=== PATIENT | female | born 1955 | race African-American/Black ===

== ENCOUNTER 2016-08-20 05:46 | Emergency (ER) | payer OTHER ==
[2016-08-20 03:48] LABS: ASCORBIC ACID (UR NOT ORDER) NEG (NEG); BILIRUBIN, URINE NEGATIVE (NEG); ER URINALYSIS TAT 0 Hrs 00 Mins; KETONE, URINE TRACE MG/DL (NEG); LEUKOCYTE ESTERASE(NOT OR TRACE (NEG); NITRITE (URINE) NEG (NEG); WBC (NOT ORDERED) (RFLEX) 2 (0-5)
[2016-08-20 04:09] LABS: BASOPHILS 0.1 %; BASOPHILS ABSOLUTE 0.01 10/3/uL (0.0-0.16); EOSINOPHILS 2.9 %; ER CBC TAT 0 Hrs 02 Mins; HEMATOCRIT 35.4 % (36.0-48.0); HEMOGLOBIN 11.5 g/dL (12.0-16.0); IMMATURE GRANULOCYTES 0.1 %; IMMATURE GRANULOCYTES ABSOLUTE 0.01 10/3/uL (0.0-0.11); LYMPHOCYTES 36.7 %; LYMPHOCYTES ABSOLUTE 2.55 10/3/uL (0.67-4.30); MANUAL DIFF NO %; MEAN CORPUS HGB CONC 32.5 g/dL (32.0-36.0); MEAN CORPUSCULAR HEMOGLOB 26.9 pg (26.0-34.0); MEAN CORPUSCULAR VOLUME 82.9 fL (80-100); MEAN PLATELET VOLUME 10.3 fL (9.2-13.0); MONOCYTES 6.6 %; MONOCYTES ABSOLUTE 0.46 10/3/uL (0.21-1.20); NEUTROPHILS 53.6 %; NEUTROPHILS ABSOLUTE 3.71 10/3/uL (2.02-8.40); PLATELET COUNT 206 10/3/uL (150-400); RED CELL COUNT 4.27 10/6/uL (4.0-5.6); WHITE BLOOD CELLS 6.9 10/3/uL (4.5-10.5)
[2016-08-20 04:14] LABS: AMPHETAMINES (NOT ORD) NEG (NEG); BARBITURATES (NOT ORDERED NEG (NEG); BENZODIAZEPINES (NOT ORD) POS (NEG); CANNABINOIDS (THC) NEG (NEG); COCAINE (NOT ORDERED) NEG (NEG); OPIATES POS (NEG); PHENCYCLIDINE(PCP) NEG (NEG); TRICYCLICS POS (NEG)
[2016-08-20 04:16] LABS: PARTIAL THROMBO TIME 47.9 SEC (22.5-37.2)
[2016-08-20 04:19] LABS: PROTIME (NOT ORD) 22.9 SEC (12.0-14.5)
[2016-08-20 04:32] LABS: CALCIUM, SERUM 9.2 MG/DL (8.5-10.4); CHEST PAIN PROFILE TAT 0 Hrs 25 Mins; CHLORIDE, SERUM 97 MMOL/L (96-112); CO2 (CARBON DIOXIDE) 33 MMOL/L (24-34); CREATININE 1.67 MG/DL (0.55-1.02); GFR AFRICAN AMERICAN 38 ML/MIN (>=60); GFR NON AFRICAN AMERICAN 32 ML/MIN (>=60); POTASSIUM, SERUM 3.9 MMOL/L (3.5-5.3); SODIUM, SERUM 136 MMOL/L (135-148); TROPONIN I <0.02 NG/ML (<0.05)
[2016-08-20 04:33] LABS: ACETAMINOPHEN LEVEL (TYLENOL) < 2.0 MCG/ML (10.0-20.0); ALCOHOL < 3 MG/DL (0); BUN (BLOOD UREA NITROGEN) 23 MG/DL (6-23); GLUCOSE, SERUM 238 MG/DL (60-99); SALICYLATE < 1.7 MG/DL (-)
[2016-08-20 05:32] LABS: ALBUMIN 3.4 G/DL (3.5-5.0); DIRECT BILIRUBIN 0.1 MG/DL (0.0-0.4); INDIRECT BILIRUBIN(NOT ORDER) 0.5 MG/DL (0.1-0.9); SGOT(AST) 25 U/L (5-40); SGPT(ALT) 20 U/L (5-65); TOTAL BILIRUBIN 0.6 MG/DL (0-1.2); TOTAL PROTEIN 7.7 G/DL (6.0-8.5)
[2016-08-20 05:34] LABS: ALKALINE PHOSPHATASE 117 U/L (45-117)
[~2016-08-20 05:46] MED LIST: ANTIBIOTIC PO; APRES25 PO; ASAB PO; AUG875 PO; BACDS PO; BYETTA10 SC; C1 PO; C5; C5 PO; CAT2 PO; CEFT5 PO; COREG25 PO; COUMADIN6 MG PO; COUMADIN7.5 MG PO; COZ50 PO; DSS PO; DURA100 TOP; DURA25 TOP; DURA50 TOP; ENDOCET1 TA3 PO; FLEX PO; FLEXERIL PO; FLEXERIL5 MG PO; GLUCOPHAGE1000 MG PO; GLUCOV2.5 PO; GLUCPH PO; HUMALOG SC; ICY HOT16 % TOP; IMDUR30 PO; IMOD PO; JANTOVEN1 MG; JANTOVEN1 MG PO; JANTOVEN5 MG PO; JANTOVEN7.5 MG PO; K-TABS10 MEQ PO; KDUR20 PO; KLOR-CON 1010 MEQ PO; KLOR-CON M1010 MEQ PO; KLOR-CON M2020 MEQ PO; L20 PO; L40 PO; L80 PO; LANTUS SC; LEVEMIR SC; LIOR10 PO; LISINOPRIL PO; LOP100 PO; LOPID6 PO; MAGOX4 PO; METFORMIN PO; MEVACOR PO; MICRO-K10 MEQ PO; MIRALAXPKT PO; MSCONT60 PO; MSCONTIN PO; NEUR100 PO; NEUR300 PO; NEUR600 PO; NORV5 PO; NOVOLOG SQ; NXL6 PO; OMNICEF300 PO; OTC PAIN PATCH TOP; PERCOCET1 TA4 PO; PHEN50TAB PO; PHENERGAN PO; PLAQ200B PO; PR25 PO; PRILO PO; PRIN10 PO; PRIN20 PO; PRIN5 PO; RESTASIS OPH; RESTORIL30 MG PO; RYTHMOL150 MG PO; SANTYL250 MG/GM TOP; SEROQUEL1C PO; SEROQUEL50 MG PO; SILVASORB TOP; STEROID SHOT IM; TAMBOCOR150 MG PO; TOPAMAX100 PO; ULTRAM50 PO; VISINE0.05 % OP; VITC500 PO; ZANTAC 150 PO; ZANTAC150 MG PO; ZITHROMAX500 MG PO; ZOCOR40 PO; ZOFRAN8 PO; [UNRECOGNIZED DRUG - OTHER] PO
== END 2016-08-20 09:59 | disposition home or self-care (01) ==
LOC: ER 05:46
PROVIDERS: Nurse Practitioner
DX: E83.42 Hypomagnesemia (principal); N28.9 Disorder of kidney and ureter, unspecified; I11.0 Hypertensive heart disease with heart failure; I50.9 Heart failure, unspecified; E11.9 Type 2 diabetes mellitus without complications; I48.91 Unspecified atrial fibrillation; Z90.49 Acquired absence of other specified parts of digestive tract; Z88.8 Allergy status to other drugs, medicaments and biological substances; Z79.4 Long term (current) use of insulin; Z79.01 Long term (current) use of anticoagulants; Z79.899 Other long term (current) drug therapy
CPT/HCPCS: 70450; 71010; 80048; 80076; 80305; 80307; 81001; 82140; 83735; 84484; 85025; 85610; 85730; 93005; 99285; J3475

== ENCOUNTER 2016-08-21 04:58 | Observation (INO) | payer OTHER ==
--- NOTE | ~2016-08-21 | CN ---
Consultation Report [facility] [address] [place]. [address] NAME: MAILE VILLARREAL : 53 STATUS : ADM Alyssa PAT#: [id number] AGE: 61 ADM/REG DATE : 08/21/16 MR#: [id number] REPORT SERV DATE: 08/21/16 DICTATED BY: LESLYE MOSES DATE: 08/21/16 REPORT STATUS : Draft TRANSCRIBED BY: MODL DATE: 08/21/16 NEUROLOGY CONSULTATION DATE OF CONSULTATION: 08/21/2016 REASON FOR CONSULTATION: Acute encephalopathy. HOSPITALIST: Dr. Marcia More. PSYCHIATRIST: Dr. Lopez. HISTORY OF PRESENT ILLNESS: The patient is a 61-year-old female, who has become increasingly paranoid and delirious. This increase in intensity and frequency started approximately on 08/18/2016. She has been calling the police station saying that she has threatened by danger. The neighbors found her wandering out into the neighborhood and at 0100 hours in the morning, she was wandering outside looking for family members and later on the afternoon, she had not slept and was found at 0230 hours in the neighbor's field wandering around searching for her grandchildren. She was brought back home, but then again at 0200 hours in the morning, she was found outside. She was paranoid and confused and was wanting to call the police, stating that she was in danger. Her family describes her as panic, anxious, and agitated. She does complain of arthritic pain and feels short of breath. She also has some left ear pain and drainage. She denies any headache, any chest pain, abdominal pain, back pain, or sore throat. At this time, the patient is in her room. She is agitated. She is arguing with the nursing staff and also with security. She states that, she wants to go home. She does not want anything to do with [facility] and wants to be able to pick her own physicians. She states that, there is nothing wrong with her, and she wants to walk home. She is frantically searching for her cane and trying to put on her coat while headed for the door. She states that, she does not need her daughter, that she can find her way home on her own. The patient does not want to sign any forms and feels that she is mentally stable to take care of herself. She has been highly encouraged to stay here and was told that she is not able to walk home safely on her own or to make medical decisions on her own. She has also been told that her daughter Jolene will be here shortly and she should wait for her arrival. PAST MEDICAL HISTORY: Lupus with arthritis, diabetes mellitus, diabetic neuropathy, COPD, migraine, atrial fibrillation, SVT, restless legs syndrome, fibromyalgia, chronic diastolic heart failure, empty sella syndrome, UTI, pneumonia, sacral decubitus, anemia, diverticulosis, anxiety, and depression with psychotic features, exophthalmos, dysphagia, chronic pain, cellulitis of the groin, obstructive sleep apnea with noncompliance with CPAP, ischemic colitis, intraperitoneal bleed, hypertension, and history of tobacco abuse. PAST SURGICAL HISTORY: Cardiac ablation x2, right axillary incision and drainage, back surgery x2, left rotator cuff repair, total abdominal hysterectomy, cholecystectomy, appendectomy, and right carpal tunnel release. Consultation Report [address] [address] NAME: MAILE VILLARREAL : 53 STATUS : ADM Alyssa PAT#: [id number] AGE: 61 ADM/REG DATE : 08/21/16 MR#: [id number] REPORT SERV DATE: 08/21/16 DICTATED BY: LESLYE MOSES DATE: 08/21/16 REPORT STATUS : Draft TRANSCRIBED BY: DIAN DATE: 08/21/16 HOME MEDICATIONS: Consists of baclofen 10 mg q.i.d., Neurontin 300 mg t.i.d., Plaquenil 200 mg b.i.d., Levemir 15 units subcu q.a.m. and 20 units subcu at bedtime, Humalog insulin sliding scale before meals and at bedtime, Prinivil 20 mg b.i.d., Glucophage 500 mg before meals and at bedtime, Lopressor 100 mg b.i.d., MS Contin 30 mg every 12 hours, Zofran 8 mg p.r.n., Percocet 10/325 mg four times a day, Zantac 150 mg b.i.d., Zocor 40 mg at bedtime, Restoril 30 mg at bedtime, Jantoven 5 mg Sunday, Sunday, and Sunday and 9 mg Sunday and . ALLERGIES: TOLECTIN, MORPHINE, AND ASPIRIN. SOCIAL HISTORY: The patient is . She lives alone. She has one daughter. She is on disability. She is a remote smoker. Does not drink alcohol or use illicits. FAMILY HISTORY: The patient's mother of COPD. Her father from lung cancer. She has one daughter who has lupus. REVIEW OF SYSTEMS: For pertinent positives, please refer to HPI. PHYSICAL EXAMINATION: GENERAL: The patient is a 61-year-old female, who stands 5 feet 6 inches tall and weighs 240 pounds. VITAL SIGNS: She is afebrile. Heart rate 72, respiratory rate 18, O2 saturations on room air of 97%, blood pressure 152/88. NEURO: At this point, the patient refuses any type of physical exam. She is verbal. No dysarthria. No aphasia noted. EXTREMITIES: The patient seems to be moving all extremities x4. No obvious focal deficits noted. LABORATORY DATA: CBC is normal. BMP normal except the glucose is 179. INR is subtherapeutic at 1.3. TSH 0.425. Cortisol level is elevated at 32.6. C-reactive protein 15.9. Complement C3 186, which is abnormal, complement C4 is normal at 36.8. UA negative for UTI. Chest x-ray, negative. A1c is 11.3. Cholesterol values are mildly elevated. CT of the brain, no acute changes. ASSESSMENT/PLAN: 1. Acute encephalopathy with delirium, etiology unknown, multifactorial, this is most likely psychiatric in nature; however, we will rule out organic causes. The patient will undergo an MRI of the brain without gadolinium and an MRA of the head and neck with gadolinium. The patient has atrial fibrillation and came in with a subtherapeutic INR of 1.3, also various lab work will be checked. 2. Schizoaffective disorder, bipolar type with psychotic features. 3. Lupus. 4. Empty sella syndrome. Consultation Report [place] [address] [place]. [address] NAME: MAILE VILLARREAL : 53 STATUS : ADM Alyssa PAT#: [id number] AGE: 61 ADM/REG DATE : 08/21/16 MR#: [id number] REPORT SERV DATE: 08/21/16 DICTATED BY: LESLYE MOSES DATE: 08/21/16 REPORT STATUS : Draft TRANSCRIBED BY: DIAN DATE: 08/21/16 5. Atrial fibrillation with a subtherapeutic INR. Thank you again for including us in consultation. We will follow with you. ADDY/DIAN Leslye Moses, [facility] / [id number] CC: MD Dillan Rodriguez M.D. Denis Kennedy, M.D. Rohini R Alay, M.D.
--- NOTE | ~2016-08-21 | DS ---
Discharge Summary [facility] [address] [place]. [address] NAME: MAILE VILLARREAL : 53 STATUS : DIS Alyssa PAT#: [id number] AGE: 61 ADM/REG DATE : 08/21/16 MR#: [id number] REPORT SERV DATE: 08/24/16 DICTATED BY: DATE: REPORT STATUS : Draft TRANSCRIBED BY: MODL DATE: 08/23/16 ADMISSION DATE: 08/21/2016 DISCHARGE DATE: 08/23/2016 The patient was admitted to the [facility]. Attending doctor is Dr. Francisco Tomlinson. CONSULTANTS: Raj Lopez M.D., of Psychiatry; and Darlene Reeder, nurse-practitioner, of Neurology. DISCHARGE DIAGNOSES: 1. Acute psychosis due to schizoaffective disorder, bipolar type, with delusions and sarah at admission. Improved with Seroquel and Ativan. 2. Generalized anxiety disorder. 3. History of empty sella syndrome. 4. History of lupus. 5. Insulin-dependent diabetes mellitus type 2-uncontrolled with hemoglobin A1c of 11. Easily controlled here with minimal amounts of insulin, suggesting dietary noncompliance as an outpatient. 6. Chronic atrial fibrillation-anticoagulated on Xarelto, rate controlled. 7. Hypertension-controlled. Did not require as much medication as she previously took outpatient. 8. Acute kidney injury present at admission-resolved. 9. Hypokalemia-initiated on replacement. 10.Hypomagnesemia-initiated on replacement. IMAGIN. Portable chest x-ray, 08/20/2016, shows pulmonary venous congestion. 2. Brain CT without contrast, 08/20/2016, no acute intracranial abnormality on noncontrast CT brain scan. 3. Portable chest x-ray, 08/21/2016, shallow inspiration, but no acute cardiopulmonary abnormality. 4. MRI of the brain without contrast, 08/21/2016, shows chronic mild bilateral anterior ethmoid sinus disease. Very minor deep white matter chronic microvascular ischemic change. No acute CVA or other acute intracranial abnormality. 5. MRA of the head and neck on 08/21/2016 shows unremarkable MRA of the carotids. No significant atherosclerotic plaque or stenosis. Dominant right vertebral artery with otherwise normal contour and normal antegrade flow in bilateral vertebral arteries. PERTINENT LABS: Creatinine at admission was 1.67, 1.02 at discharge. Magnesium ranged from 1.5 to 1.6, potassium ranged from 3.12 to 3.6. NICANOR was positive at 1:320 in a speckled pattern. White blood cell count was normal, hemoglobin minimally depressed at 11.6, platelet value is normal. INR ranging from 1.2 to 1.6 this admission. Albumin 2.7. TSH normal. Ammonia negative. B12 of 1987. CRP 13.5. Sedimentation rate 63. Hemoglobin A1c 11. C3 complement 186. C4 complement 36.8. Urinalysis negative for infection. Urine drug screen positive for benzodiazepines, opiates, and tricyclics. Discharge Summary [place] [address] [place]. [address] NAME: MAILE VILLARREAL : 53 STATUS : DIS Alyssa PAT#: [id number] AGE: 61 ADM/REG DATE : 08/21/16 MR#: [id number] REPORT SERV DATE: 08/24/16 DICTATED BY: DATE: REPORT STATUS : Draft TRANSCRIBED BY: MODL DATE: 08/23/16 BRIEF HISTORY: For full details, please see the previously dictated history of present illness by Dr. Casper Glover. Briefly, this is a 61-year-old female with known history of schizoaffective disorder, bipolar type, who was experiencing increasing paranoia, confusion, and wandering hours in the days before admission. She was not sleeping and endorsed racing thoughts, with feelings of panic, anxiety, and agitation. She denied any hallucinations. She was admitted to the Hospitalist Service for further evaluation of acute encephalopathy. She also demonstrated acute kidney injury at admission and uncontrolled diabetes. HOSPITAL COURSE: The patient was admitted to a med/surg telemetry unit. Consultations were obtained from Neurology and Psychiatry, who felt that the most likely etiology of her symptoms was exacerbation of her underlying schizoaffective disorder. She did undergo several laboratories to rule out reversible medical causes for her increased confusion and paranoia. Results were normal. She also underwent an MRI and MRA of the brain, which was normal with the exception of mild ethmoid sinusitis. She remained paranoid and agitated for the first 24 hours of admission, requiring p.r.n. Geodon and Ativan. Psychiatry initiated her on Seroquel well, with great improvement in her symptoms by 08/22/2016, at which point, she was feeling "much better," and with much improved insight and judgment. She was calmer and cooperative, with no recurrence of her symptoms during the admission. She is felt appropriate for discharge on 08/23/2016, to continue taking Seroquel well on a scheduled basis and Ativan on a p.r.n. basis, and to follow up at [facility] where she has been seen previously. She has not felt to require inpatient hospitalization at present. Her other medical issues were stable this admission. She does not demonstrate active lupus by complement levels, although she does have a persistently positive NICANOR and has in the past as well. Her diabetes is uncontrolled with a hemoglobin A1c of 11 as an outpatient, but her blood sugars are easily controlled in the hospital with less insulin than her home requirements, indicating dietary noncompliance. Regarding chronic atrial fibrillation, she was rate controlled. Apparently, she is anticoagulated on Xarelto as an outpatient, but this medication change had not been communicated at admission, and she was treated with Jantoven here, with a subtherapeutic INR. She will be resumed on Xarelto for discharge. Regarding hypertension and acute kidney injury at admission, the patient and daughter felt that she has been overmedicated recently, and again, because of errors in her home medication list, she was not actually continued on many of her home antihypertensives during the admission, with good blood pressure control in the systolic 130 to 150 range. Thus her medications have been adjusted slightly for discharge as well, to follow up with her primary care provider and the [facility] as scheduled. She did have hypokalemia and hypomagnesemia on multiple occasions and was started on scheduled replacement for this. DISCHARGE DATA: The patient is discharged to home in the care of her supportive daughter with no specific activity restrictions. She should adhere to an 1800 K calorie, ADA, cardiac diet for her comorbidities. She will follow up at [facility] and Case Management is making an appointment. She will need to follow up with primary care provider, Dr. Baig; and wind farm electrical systems designer, Dr. Jones; as previously scheduled. Discharge Summary [place] [address] [place]. [address] NAME: MAILE VILLARREAL : 53 STATUS : DIS Alyssa PAT#: [id number] AGE: 61 ADM/REG DATE : 08/21/16 MR#: [id number] REPORT SERV DATE: 08/24/16 DICTATED BY: DATE: REPORT STATUS : Draft TRANSCRIBED BY: DIAN DATE: 08/23/16 DISCHARGE MEDICATIONS: Include, 1. Neurontin 300 mg p.o. three times a day. 2. Xarelto 20 mg p.o. daily with supper. 3. Levemir 15 units subcu twice a day. 4. NovoLog subcu q.a.c. and at bedtime-sliding scale. 5. Number lisinopril 20 mg p.o. b.i.d. 6. Lopressor 100 mg p.o. b.i.d. 7. Zocor 40 mg p.o. at bedtime. 8. Magnesium oxide 400 mg p.o. daily. 9. Potassium chloride 20 mEq p.o. daily. 10.Seroquel 100 mg p.o. at bedtime. 11.Restoril 15 mg p.o. at bedtime. 12.Demadex 20 mg p.o. daily. 13.Baclofen 20 mg p.o. three times a day. 14.Metformin 500 mg p.o. q.a.c. breakfast and supper. 15.MS Contin 30 mg p.o. every 12 hours. 16.Percocet 10/325 mg one tablet p.o. three times a day as needed. 17.B12 1000 mcg p.o. daily. 18.Vitamin D 1000 units p.o. daily. 19.Ativan half to 1 mg q.8 hours p.r.n. anxiety or agitation. At discharge, her torsemide has been decreased from 20 mg p.o. twice a day to 20 mg p.o. daily in order to avoid recurrent acute kidney injury or hypotension. Her Catapres has also been discontinued. Her Elavil was discontinued here, and she is prescribed temazepam to help with sleep instead as she showed good response to this medication during this hospitalization. 40 minutes was spent in completion of the discharge. PANDA/DIAN Francisco Tomlinson M.D. / [id number] CC: Francisco Tomlinson M.D. Dillan Mac M.D. Isael Jones M.D. [facility]
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
--- NOTE | ~2016-08-21 | CN ---
Consultation Report [facility] [address] [place]. [address] NAME: MAILE VILLARREAL : 53 STATUS : ADM Alyssa PAT#: [id number] AGE: 61 ADM/REG DATE : 08/21/16 MR#: [id number] REPORT SERV DATE: 08/21/16 DICTATED BY: RAJ CUI DATE: 08/21/16 REPORT STATUS : Draft TRANSCRIBED BY: DIAN DATE: 08/21/16 PSYCHIATRIC CONSULTATION DATE OF CONSULTATION: 08/21/2016 I reviewed the patient's current and old medical records. I discussed her status with her nurse. HISTORY OF PRESENT ILLNESS: Over recent days, the patient had called the police on a number of occasions, reporting that she was being threatened by imaginary assailants. On 08/20/2016, she was found wandering outside at 1 o'clock in the morning. Subsequently, she was found in a neighboring field searching for imaginary grandchildren. The family reported that she has been agitated, going without sleep for the past four to five days. PAST PSYCHIATRIC HISTORY: I previously saw her in consultation during two previous admissions in 2011 and 2014. For a number of years, perhaps more than 20, she has been delusional about family members and other issues. She has frequently complained about imaginary intruders in her yard and in her house. For some years, she attended [facility], which is a mental health clinic. She quit attending there in 2009. During both of my previous consultations, I prescribed Seroquel 50 to 100 mg q.h.s., and I recommended her return to [facility] for followup psychiatric care. Apparently, she did not follow through with that recommendation. FAMILY HISTORY: She has siblings with alcohol and mood issues. SOCIAL HISTORY: She lives alone in [place], [place]. She has a daughter, who tries to be supportive. MENTAL STATUS: She remembered me from my two previous consultations with her. She was oriented to "the 21 of August"-"2016"-"[facility]." Her attitude was very guarded and suspicious. Her mood was anxious. She accused me of laughing and sticking out my tongue at her during a previous consultation. Her affect was labile with brief episodes of anger. Her thinking was mostly logical, but with a pervasive paranoid disposition. She said she had not slept for four or five nights because she was looking for her mother. DIAGNOSIS: Schizoaffective disorder, bipolar type, with delusions and sarah. RECOMMENDATIONS: She should be referred to an inpatient psychiatric facility as soon as she is medically cleared. I will start her on Seroquel and follow during this admission. FRANK/DIAN Raj Consultation Report [facility] [address] [id number] NAME: MAILE VILLARREAL : 53 STATUS : ADM Alyssa PAT#: [id number] AGE: 61 ADM/REG DATE : 08/21/16 MR#: [id number] REPORT SERV DATE: 08/21/16 DICTATED BY: RAJ CUI DATE: 08/21/16 REPORT STATUS : Draft TRANSCRIBED BY: DIAN DATE: 08/21/16 Otf Cui / [id number] CC: MD Dillan Rodriguez M.D.
[2016-08-21 05:23] LABS: BASOPHILS 0.1 %; BASOPHILS ABSOLUTE 0.01 10/3/uL (0.0-0.16); EOSINOPHILS 0.3 %; EOSINOPHILS ABSOLUTE 0.02 10/3/uL (0.0-0.53); HEMATOCRIT 38.7 % (36.0-48.0); HEMOGLOBIN 13.2 g/dL (12.0-16.0); IMMATURE GRANULOCYTES 0.3 %; IMMATURE GRANULOCYTES ABSOLUTE 0.02 10/3/uL (0.0-0.11); LYMPHOCYTES 19.4 %; LYMPHOCYTES ABSOLUTE 1.38 10/3/uL (0.67-4.30); MEAN CORPUS HGB CONC 34.1 g/dL (32.0-36.0); MEAN CORPUSCULAR HEMOGLOB 27.4 pg (26.0-34.0); MEAN CORPUSCULAR VOLUME 80.5 fL (80-100); MEAN PLATELET VOLUME 10.3 fL (9.2-13.0); MONOCYTES 5.8 %; MONOCYTES ABSOLUTE 0.41 10/3/uL (0.21-1.20); NEUTROPHILS 74.1 %; NEUTROPHILS ABSOLUTE 5.26 10/3/uL (2.02-8.40); PLATELET COUNT 233 10/3/uL (150-400); RBC DISTRIBUTION WIDTH 13.7 % (12.0-16.0); RED CELL COUNT 4.81 10/6/uL (4.0-5.6); WHITE BLOOD CELLS 7.1 10/3/uL (4.5-10.5)
[2016-08-21 05:26] LABS: MANUAL DIFF NO %
[2016-08-21 05:33] LABS: ASCORBIC ACID (UR NOT ORDER) NEG (NEG); BILIRUBIN, URINE NEGATIVE (NEG); ER URINALYSIS TAT 0 Hrs 11 Mins; KETONE, URINE 20 MG/DL (NEG); LEUKOCYTE ESTERASE(NOT OR NEG (NEG); NITRITE (URINE) NEG (NEG); WBC (NOT ORDERED) (RFLEX) 2 (0-5)
[2016-08-21 05:38] LABS: INTERNATIONAL NORMAL RATI 1.3 UNITS (-)
[2016-08-21 05:39] LABS: PARTIAL THROMBO TIME 37.1 SEC (22.5-37.2); PROTIME (NOT ORD) 16.2 SEC (12.0-14.5)
[2016-08-21 05:40] LABS: CHEST PAIN PROFILE TAT 0 Hrs 23 Mins; CHLORIDE, SERUM 98 MMOL/L (96-112); CO2 (CARBON DIOXIDE) 29 MMOL/L (24-34); SODIUM, SERUM 141 MMOL/L (135-148); TROPONIN I <0.02 NG/ML (<0.05)
[2016-08-21 05:41] LABS: BUN (BLOOD UREA NITROGEN) 15 MG/DL (6-23); CREATININE 1.07 MG/DL (0.55-1.02); GFR AFRICAN AMERICAN 64 ML/MIN (>=60); GFR NON AFRICAN AMERICAN 56 ML/MIN (>=60); GLUCOSE, SERUM 290 MG/DL (60-99); POTASSIUM, SERUM 3.1 MMOL/L (3.5-5.3)
[2016-08-21 13:37] LABS: ALBUMIN 3.4 G/DL (3.5-5.0); ALKALINE PHOSPHATASE 124 U/L (45-117); BUN (BLOOD UREA NITROGEN) 12 MG/DL (6-23); CHLORIDE, SERUM 105 MMOL/L (96-112); CO2 (CARBON DIOXIDE) 29 MMOL/L (24-34); COMPLEMENT C3 186 MG/DL (75-161); COMPLEMENT C4 36.8 MG/DL (16-47); CREATININE 0.94 MG/DL (0.55-1.02); GFR AFRICAN AMERICAN 75 ML/MIN (>=60); GFR NON AFRICAN AMERICAN 65 ML/MIN (>=60); POTASSIUM, SERUM 3.6 MMOL/L (3.5-5.3); SGOT(AST) 22 U/L (5-40); SGPT(ALT) 22 U/L (5-65); SODIUM, SERUM 143 MMOL/L (135-148); TOTAL BILIRUBIN 0.4 MG/DL (0-1.2); TOTAL PROTEIN 7.3 G/DL (6.0-8.5); ULTRASENSITIVE TSH 0.425 MCIU/ML (0.358-3.740)
[2016-08-21 13:38] LABS: A/G RATIO 0.9 (0.7-1.9); C-REACTIVE PROTEIN 15.9 MG/L (<8.0); CALCIUM, SERUM 9.4 MG/DL (8.5-10.4); GLOBULIN 3.9 G/DL (2.5-4.1); GLUCOSE, SERUM 179 MG/DL (60-99)
[2016-08-21 16:23] LABS: CALCIUM IONIZED 4.65 MG/DL (3.80-4.80)
[2016-08-21 16:25] LABS: BASOPHILS 0.2 %; BASOPHILS ABSOLUTE 0.01 10/3/uL (0.0-0.16); EOSINOPHILS 0.8 %; EOSINOPHILS ABSOLUTE 0.05 10/3/uL (0.0-0.53); HEMATOCRIT 37.1 % (36.0-48.0); HEMOGLOBIN 12.3 g/dL (12.0-16.0); IMMATURE GRANULOCYTES 0.2 %; IMMATURE GRANULOCYTES ABSOLUTE 0.01 10/3/uL (0.0-0.11); LYMPHOCYTES 22.5 %; LYMPHOCYTES ABSOLUTE 1.33 10/3/uL (0.67-4.30); MANUAL DIFF NO %; MEAN CORPUS HGB CONC 33.2 g/dL (32.0-36.0); MEAN CORPUSCULAR VOLUME 81.5 fL (80-100); MONOCYTES 5.2 %; MONOCYTES ABSOLUTE 0.31 10/3/uL (0.21-1.20); NEUTROPHILS 71.1 %; PLATELET COUNT 212 10/3/uL (150-400); RBC DISTRIBUTION WIDTH 13.9 % (12.0-16.0); RED CELL COUNT 4.55 10/6/uL (4.0-5.6); WHITE BLOOD CELLS 5.9 10/3/uL (4.5-10.5)
[2016-08-21 16:40] LABS: INTERNATIONAL NORMAL RATI 1.2 UNITS (-); PARTIAL THROMBO TIME 34.8 SEC (22.5-37.2); PROTIME (NOT ORD) 15.5 SEC (12.0-14.5)
[2016-08-21 16:52] LABS: INTACT PTH (ICMA) 56.6 PG/ML (10.0-65.0)
[2016-08-21 17:04] LABS: ALBUMIN 3.1 G/DL (3.5-5.0); ALKALINE PHOSPHATASE 106 U/L (45-117); C-REACTIVE PROTEIN 13.5 MG/L (<8.0); DIRECT BILIRUBIN < 0.1 MG/DL (0.0-0.4); FOLATE 19.3 NG/ML (>5.2); INDIRECT BILIRUBIN(NOT ORDER) 0.4 MG/DL (0.1-0.9); PHOSPHORUS, SERUM 2.5 MG/DL (2.5-4.5); SGOT(AST) 21 U/L (5-40); SGPT(ALT) 19 U/L (5-65); TOTAL BILIRUBIN 0.5 MG/DL (0-1.2); TOTAL PROTEIN 7.3 G/DL (6.0-8.5)
[2016-08-21 17:58] LABS: SED RATE 63 MM/HR (0-20)
[2016-08-22 05:15] LABS: BASOPHILS 0.1 %; BASOPHILS ABSOLUTE 0.01 10/3/uL (0.0-0.16); EOSINOPHILS 3.9 %; EOSINOPHILS ABSOLUTE 0.28 10/3/uL (0.0-0.53); HEMOGLOBIN 11.6 g/dL (12.0-16.0); IMMATURE GRANULOCYTES 0.1 %; IMMATURE GRANULOCYTES ABSOLUTE 0.01 10/3/uL (0.0-0.11); LYMPHOCYTES 39.3 %; LYMPHOCYTES ABSOLUTE 2.86 10/3/uL (0.67-4.30); MEAN CORPUS HGB CONC 32.2 g/dL (32.0-36.0); MEAN CORPUSCULAR HEMOGLOB 26.6 pg (26.0-34.0); MEAN CORPUSCULAR VOLUME 82.6 fL (80-100); MEAN PLATELET VOLUME 10.5 fL (9.2-13.0); MONOCYTES 7.6 %; MONOCYTES ABSOLUTE 0.55 10/3/uL (0.21-1.20); NEUTROPHILS ABSOLUTE 3.56 10/3/uL (2.02-8.40); PLATELET COUNT 226 10/3/uL (150-400); RBC DISTRIBUTION WIDTH 14.1 % (12.0-16.0); RED CELL COUNT 4.36 10/6/uL (4.0-5.6); WHITE BLOOD CELLS 7.3 10/3/uL (4.5-10.5)
[2016-08-22 05:16] LABS: MANUAL DIFF NO %
[2016-08-22 05:26] LABS: INTERNATIONAL NORMAL RATI 1.2 UNITS (-); PROTIME (NOT ORD) 15.4 SEC (12.0-14.5)
[2016-08-22 05:32] LABS: A/G RATIO 0.7 (0.7-1.9); ALBUMIN 2.7 G/DL (3.5-5.0); BUN (BLOOD UREA NITROGEN) 9 MG/DL (6-23); CALCIUM, SERUM 9.2 MG/DL (8.5-10.4); CHLORIDE, SERUM 106 MMOL/L (96-112); CO2 (CARBON DIOXIDE) 32 MMOL/L (24-34); CREATININE 0.86 MG/DL (0.55-1.02); GFR AFRICAN AMERICAN 84 ML/MIN (>=60); GFR NON AFRICAN AMERICAN 72 ML/MIN (>=60); GLOBULIN 3.8 G/DL (2.5-4.1); POTASSIUM, SERUM 3.1 MMOL/L (3.5-5.3); SGOT(AST) 15 U/L (5-40); SGPT(ALT) 17 U/L (5-65); SODIUM, SERUM 145 MMOL/L (135-148); TOTAL BILIRUBIN 0.5 MG/DL (0-1.2); TOTAL PROTEIN 6.5 G/DL (6.0-8.5)
[2016-08-22 05:33] LABS: ALKALINE PHOSPHATASE 84 U/L (45-117); GLUCOSE, SERUM 64 MG/DL (60-99)
[2016-08-23 06:22] LABS: INTERNATIONAL NORMAL RATI 1.2 UNITS (-); PROTIME (NOT ORD) 15.4 SEC (12.0-14.5)
[2016-08-23 06:29] LABS: ALBUMIN 2.7 G/DL (3.5-5.0); BUN (BLOOD UREA NITROGEN) 12 MG/DL (6-23); CALCIUM, SERUM 9.4 MG/DL (8.5-10.4); CHLORIDE, SERUM 108 MMOL/L (96-112); CO2 (CARBON DIOXIDE) 30 MMOL/L (24-34); CREATININE 1.02 MG/DL (0.55-1.02); GFR AFRICAN AMERICAN 68 ML/MIN (>=60); GFR NON AFRICAN AMERICAN 59 ML/MIN (>=60); PHOSPHORUS, SERUM 3.2 MG/DL (2.5-4.5); POTASSIUM, SERUM 3.6 MMOL/L (3.5-5.3); SODIUM, SERUM 146 MMOL/L (135-148)
[2016-08-23 06:30] LABS: GLUCOSE, SERUM 98 MG/DL (60-99)
[2016-08-23 10:00] LABS: ANA PATTERN SPECKLED
[2016-08-23] MEDS ORDERED: DEMA20 PO (10:24)
[2016-08-23] MEDS ORDERED: CAT1 PO (10:24)
[2016-08-23] MEDS ORDERED: NEUR300 PO (10:24)
[2016-08-23] MEDS ORDERED: AMIT25 PO (10:25)
[2016-08-23] MEDS ORDERED: PRIN20 PO (10:25)
[2016-08-23] MEDS ORDERED: BACLOFEN20 MG PO (10:25)
[2016-08-23] MEDS ORDERED: LOP100 PO (10:26)
[2016-08-23] MEDS ORDERED: XARELTO20 MG PO (10:26)
[2016-08-23] MEDS ORDERED: GLUCPH PO (10:26)
[2016-08-23] MEDS ORDERED: CYANO1000T PO (10:27)
[2016-08-23] MEDS ORDERED: PERCOCET 10/3251 TAB PO (10:27)
[2016-08-23] MEDS ORDERED: MSCONTIN PO (10:27)
[2016-08-23] MEDS ORDERED: ZOCOR40 PO (10:27)
[2016-08-23] MEDS ORDERED: VITAMIN D1000 UNI1 PO (10:28)
[2016-08-23] MEDS ORDERED: LEVEMIR SC (10:28)
[2016-08-23] MEDS ORDERED: NOVOLOG SC (10:29)
[2016-08-23] MEDS ORDERED: REST15 PO (13:11)
[2016-08-23] MEDS ORDERED: MAGOX4 PO (13:12)
[2016-08-23] MEDS ORDERED: KLOR-CON M2020 MEQ PO (13:13)
[2016-08-23] MEDS ORDERED: ATV.5 PO (13:15)
[2016-08-23] MEDS ORDERED: SEROQUEL1C PO (13:16)
== END 2016-08-23 15:47 | disposition home or self-care (01) ==
LOC: ER 04:58 → 7NO 05:12
PROVIDERS: Hospitalist; Nurse Practitioner; Specialist
DX: F25.0 Schizoaffective disorder, bipolar type (principal); E11.40 Type 2 diabetes mellitus with diabetic neuropathy, unspecified; I48.2 Chronic atrial fibrillation; F32.9 Major depressive disorder, single episode, unspecified; I11.0 Hypertensive heart disease with heart failure; F41.1 Generalized anxiety disorder; G93.40 Encephalopathy, unspecified; I50.32 Chronic diastolic (congestive) heart failure; G25.81 Restless legs syndrome; M19.90 Unspecified osteoarthritis, unspecified site; M79.7 Fibromyalgia; G43.909 Migraine, unspecified, not intractable, without status migrainosus; J44.9 Chronic obstructive pulmonary disease, unspecified; D64.9 Anemia, unspecified; G89.29 Other chronic pain; G47.33 Obstructive sleep apnea (adult) (pediatric); E83.42 Hypomagnesemia; E87.6 Hypokalemia; N17.9 Acute kidney failure, unspecified; K55.9 Vascular disorder of intestine, unspecified; I47.1 Supraventricular tachycardia; Z87.440 Personal history of urinary (tract) infections; Z79.4 Long term (current) use of insulin; Z90.49 Acquired absence of other specified parts of digestive tract; Z90.710 Acquired absence of both cervix and uterus; Z95.5 Presence of coronary angioplasty implant and graft; Z98.890 Other specified postprocedural states; Z88.2 Allergy status to sulfonamides; Z88.5 Allergy status to narcotic agent; Z88.8 Allergy status to other drugs, medicaments and biological substances
CPT/HCPCS: 70544; 70548; 70551; 71010; 80048; 80053; 80069; 80076; 81001; 82140; 82248; 82330; 82533; 82607; 82746; 82962; 83735; 83880; 83970; 84100; 84132; 84443; 84484; 85025; 85610; 85652; 85730; 86039; 86140; 86160; 93005; 96372; 96374; 96375; 96376; 99285; A9270-GY; A9577; G0378; J0360; J3475; J3486